=== PATIENT | male | born 2000 | race Caucasian/White ===

== ENCOUNTER 2025-03-05 16:35 | Emergency (ER) | payer OTHER, SELFPAY ==
[2025-03-05 16:45] VITALS: BP 129/82; PULSE 67; RESP 16; TEMP 37.1; O2SAT 100
--- NOTE | 2025-03-05 17:09 | ED_ITS ---
HPI - Ear Problem General Chief complaint: Ear Stated complaint: EARACHE Time Seen by Provider: 03/05/25 16:55 Source: patient Mode of arrival: ambulatory Limitations: no limitations History of Present Illness HPI Narrative: 24-year-old male presents with complaint of right ear pain for 3 days. No other symptoms. All systems reviewed and negative except as noted above. Related Data Allergies Allergy/AdvReac Type Severity Reaction Status Date / Time No Known Allergies Allergy Unknown Unverified 10/06/16 20:45 Review of Systems Review of Systems: CONSTITUTIONAL: Denies fever, chills, or sweats. EYES: Denies visual changes, redness, or discharge. ENT: Denies rhinorrhea, congestion, sore throat. Reports right ear pain. CARDIOVASCULAR: Denies chest pain, palpitations, or edema. RESPIRATORY: Denies cough or dyspnea. GASTROINTESTINAL: Denies abdominal pain, nausea, vomiting, or diarrhea. GENITOURINARY: Denies dysuria or hematuria. SKIN: Denies rash or itching. MUSCULOSKELETAL: Denies back pain, joint pain, or myalgia. NEUROLOGIC: Denies headache, numbness, or weakness. PSYCHIATRIC: Denies anxiety or depression. All other systems reviewed are negative, except as documented in HPI. PMFSH Comments At time of signature, agree with nursing past medical, surgical, social and family history. There is no relevant family history pertinent to the presenting complaint. Exam Narrative: GENERAL: This is a well-nourished, well-developed patient, in no apparent distress. HEAD: normocephalic, atraumatic. EYES: PERRL. Sclera clear/white. Vision is grossly intact. EARS: External ears normal, auditory canals clear and without drainage, right TM is injected with yellow fluid, right TM retracted. Left TM is normal. No perforation bilaterally. NOSE: External nose normal with no obvious nasal discharge, nares without redness, no rhinorrhea. THROAT: Mucous membranes moist, posterior pharynx clear. NECK: Neck supple, non-tender without lymphadenopathy, masses or thyromegaly. CARDIOVASCULAR: Regular rate and rhythm without murmurs, gallops, or rubs. RESPIRATORY: Clear to auscultation. Breath sounds equal bilaterally. No wheezes, rales, or rhonchi. SKIN: warm, Dry, intact with no suspicious lesions or rash, good texture and turgor. NEURO: awake, alert, and oriented to person, place and time. There were no obvious focal neurologic abnormalities. EXTREMITIES: No joint tenderness, effusion, or edema noted. Course Course Level of Care: Express Care Visit Vital Signs Vital signs: Vital Signs Temperature 37.1 C 03/05/25 16:45 Pulse Rate 67 03/05/25 16:45 Respiratory Rate 16 03/05/25 16:45 Blood Pressure 129/82 03/05/25 16:45 Pulse Oximetry 100 03/05/25 16:45 Temperature 37.1 C 03/05/25 16:45 Pulse Rate 67 03/05/25 16:45 Respiratory Rate 16 03/05/25 16:45 Blood Pressure 129/82 03/05/25 16:45 Pulse Oximetry 100 03/05/25 16:45 Reviewed Medical Decision Making MDM Narrative Medical decision making narrative: Will treat right serous otitis with amoxicillin. Patient is well-appearing, nontoxic. Vital Signs Vital Signs: Vital Signs Temperature 37.1 C 03/05/25 16:45 Pulse Rate 67 03/05/25 16:45 Respiratory Rate 16 03/05/25 16:45 Blood Pressure 129/82 03/05/25 16:45 Pulse Oximetry 100 03/05/25 16:45 Temperature 37.1 C 03/05/25 16:45 Pulse Rate 67 03/05/25 16:45 Respiratory Rate 16 03/05/25 16:45 Blood Pressure 129/82 03/05/25 16:45 Pulse Oximetry 100 03/05/25 16:45 Discharge Plan Discharge Clinical Impression: Acute serous otitis media of right ear Qualifiers: Recurrence: not specified as recurrent Qualified Code(s): H65.01 - Acute serous otitis media, right ear Patient Disposition: Home Condition: Stable Instructions: Antibiotic Form, Fluid In The Ear (Serous Otitis Media) (ED) Additional Instructions: Take antibiotic as prescribed until gone. Take Tylenol or ibuprofen every 6-8 hours as needed for pain. Taking [id number] antihistamine daily such as Claritin or Zyrtec. See your doctor if symptoms are not improving. Patient Language: Hebrew Prescriptions: New amoxicillin 875 mg tablet 875 mg PO Q12H 10 Days Qty: 20 0RF Follow-up/Referrals: PHYSICIAN,GEOSPATIAL SCIENTIST [Primary Care Provider] - Time of Disposition: 17:04
== END 2025-03-05 17:07 | disposition home or self-care (01) ==
PROVIDERS: Emergency Provider Nurse Practitioner Family
DX: H65.01 Acute serous otitis media, right ear (principal)
CPT/HCPCS: 99203; G0463